=== PATIENT | male | born 1950 ===

== ENCOUNTER → 2024-05-12 | Outpatient (CLI) | payer MEDICARE | LOC: M SOG 10:58 | PROVIDERS: ATTEND Physician Assistant | DX: M25.572 Pain in left ankle and joints of left foot (principal) ==

== ENCOUNTER → 2024-06-17 | Outpatient (CLI) | payer MEDICARE | LOC: M SOG 12:56 | PROVIDERS: ATTEND Physician Assistant | DX: M25.561 Pain in right knee (principal); M25.461 Effusion, right knee ==